=== PATIENT | male | born 1950 | race Caucasian/White ===

== ENCOUNTER → 2017-10-31 11:52 | Outpatient (CLI) | payer MEDICARE, OTHER, SELFPAY ==
--- NOTE | 2017-10-31 11:52 | DT_ITS ---
This patient was seen during an EMR downtime October 29, 2017 - November 05, 2017. This patient may have a combination of paper and electronic documentation or all paper documentation. All documentation is viewable within the e-chart portion of [facility] for each patient visit.
[2017-11-04 15:49] LABS: BUN 15 mg/dL (7-18); BUN/Creat Ratio 17.2 RATIO (10-20); Creatinine, Serum 0.87 mg/dL (0.70-1.30); EST Glomerular Filtration Rate 92 mL/min (>60); Est Glom Filt Rate - Afr Amer 112 mL/min (>60); Glucose 112 mg/dL (74-106)
[2017-11-04 15:50] LABS: AST(SGOT) 28 U/L (15-37); Alanine Aminotransfer ALT/SGPT 48 U/L (16-61); Albumin, Serum 4.2 g/dL (3.2-5.0); Alkaline Phosphatase 80 U/L (45-117); Anion Gap 7 (5-15); Bilirubin, Direct 0.08 mg/dL (0.00-0.30); Chloride 106 mmol/L (98-107); Cholesterol 160 mg/dL (200); Globulin 3.2 g/dL (2.2-4.2); High Density Lipoprotein 44 mg/dL; Potassium 4.3 mmol/L (3.5-5.1); Protein, Total 7.4 g/dL (6.4-8.2); Sodium Level 142 mmol/L (136-145); Triglycerides 251 mg/dL; Very Low Density Lipoprotein 50 mg/dL (5-40)
== END ==
PROVIDERS: Visit Provider Family Medicine
DX: E11.9 Type 2 diabetes mellitus without complications (principal); E78.5 Hyperlipidemia, unspecified
CPT/HCPCS: 36415; 80048; 80061; 80076; 82043; 82570; 83036

== ENCOUNTER → 2017-10-31 13:45 | Outpatient (CLI) | payer OTHER, SELFPAY ==
--- NOTE | 2017-10-31 13:45 | DT_ITS ---
This patient was seen during an EMR downtime October 29, 2017 - November 05, 2017. This patient may have a combination of paper and electronic documentation or all paper documentation. All documentation is viewable within the e-chart portion of [facility] for each patient visit.
== END ==
PROVIDERS: Family Provider Family Medicine; Visit Provider Family Medicine
DX: E11.9 Type 2 diabetes mellitus without complications (principal); E78.5 Hyperlipidemia, unspecified
CPT/HCPCS: 36415; 80048; 80061; 80076; 82043; 82570; 83036

== ENCOUNTER 2018-01-25 13:00 | Outpatient (RCR) | payer MEDICARE, OTHER, SELFPAY ==
--- NOTE | 2017-12-28 10:18 | HP.PTEVAL_ITS ---
Patient's Visit Information VALENTIN JOYCE is a 67 year old M referred to Physical Therapy by Eda Park MD with a diagnosis of RIGHT SHOULDER STRAIN. Date of Evaluation: 12/28/17 Physical Therapist: Sridevi Chan - Visit Plan Frequency: 2x /Week Duration: 6 Weeks Plan: RIGHT SHOULDER US, ROM, STRETCHING AND STRENGTHENING NEEDED TO MEET SET GOALS. POSTURE CORRECTION/STRENGTHENING. - Subjective Subjective: Diagnosis: Work/Leisure: [employer]. [employer]. RETIRED. WORKED ABOUT 80 HOURS A WEEK IN NOVEMBER. SOME MONTHS DOES NOT WORK MUCH AT ALL. Disability: NO. Present symptoms: RIGHT SHOULDER. NO NECK PAIN. NO PAIN, NUMBNESS OR TINGLING DOWN THE ARM. NO LEFT UE SX'S. Present since: MAY 2017. Pain Scale: Worst - 5/10Least - 0/10. Currently: 0/10. Commenced as a result of: PULLING HARD ON A GOAT. Symptoms at onset: SAME. Worse: SLEEPING ON RIGHT SIDE, OVER-HEAD REACHING, REACHING ACROSS BODY. Better: AVOIDING AGGREVATING MOTIONS. Disturbed sleep: YES. Previous history /Previous treatment: UNREMARKABLE. Dizziness: NO. Tinnitis: NO. Nausea: NO. Difficulty Swollowing: NO. Gait: NORMAL. Accidents: NO. Unexplained weight loss: NO. Imaging: NONE. PMH/Recent major surgery: NIDDM - Objective Sitting Posture/Standing Posture: FORWARD HEAD AND ROUNDED SHOULDERS. NO TORTICOLIS. Other Observations: INDEP GAIT AND TRANSFERS WITHOUT DIFFICULTY. Motor deficit: LUE 5/5. RIGHT UE 5/5 EXCEPT RIGHT SHOULDER 4/5. Sensory deficit: NO. ROM deficit: LUE WFL. RIGHT SHOULDER: 148 DEG RIGHT SHOULDER FLEX IN LYING. SUPINE ER 80 DEG, IR 50 DEG. 145 DEG ABD. ERP INTO FLEX, TIO ABD , AND MILDLY INTO IR. GOOD ER ROM IN LYING. Postural strength: FAIR. Palpation: TENDERNESS RIGHT LATERAL SUBACROMIAL REGION. TENDERNESS IS LOCALIZED. - Goals Goal 1:: DECREASE C/O RIGHT SHOULDER PAIN Goal Time Frame: 4-6 Weeks Goal 2:: INCREASE FUNCTIONAL ROM OF RIGHT SHOULDER Goal Time Frame: 4-6 Weeks Goal 3:: INCREASE FUNCTIONAL STRENGTH OF RIGHT SHOULDER Goal Time Frame: 4-6 Weeks Goal 4:: INDEP HEP Goal Time Frame: 4-6 Weeks - Rehabilitation Potential Physical Therapy Diagnosis: DECREASED RIGHT SHOULDER FUNCTIONAL ROM AND STRENGTH. Rehabilitation Potential: Fair - Anticipated Interventions Patient/Client Instruction: Educate patient on: Condition, Plan of Care, Risk Factors, Benefits of Fitness Program For the Purpose of:: To improve self management Therapeutic Exercise to Include: Strength training, Postural training, Flexibilty training, Passive ROM, Active ROM, Scapular Strength/Stabilization For the Purpose of:: To decrease pain, To increase ROM, To improve muscle performance and motor function, To increase tolerance to activity/condition/ position, To improve ability of physical actions for home/community/work/leisure Cryotherapy (ice pack, ice massage): Yes Ultrasound (thermal/non thermal): Yes For the Purpose of:: To decrease pain, To decrease swelling/inflammation, To increase ROM, To improve nutrient delivery to tissue Thank you for the opportunity to evaluate your patient. For Medicare and Medicare HMO plans, please review the plan of care and approve it. It will need to be FAXED BACK to us at [phone] for Medicare purposes. Please let me know if there are questions or concerns regarding this plan of care. Physician Signature: Date:
--- NOTE | 2018-01-25 16:58 | HP.PTDCSUM_ITS ---
HP - PT D/C Summary It has been my pleasure to treat VALENTIN JOYCE under orders from Eda Park MD, for the diagnosis of RIGHT SHOULDER STRAIN for a total of 8 visit(s ). Discharge Date: 01/25/18 Please see the following information for a summary of their discharge status. - Subjective Subjective: PATIENT REPORTS HE IS SOME BETTER. HE STATES THE DOWNS ARE NOT BAD. STILL HAVING DIFFICULTY SLEEPING ON RIGHT SIDE - BETTER THOUGH. REACHING ACROSS BODY IS BETTER TOO. RIGHT SHOULDER PAIN RANGING 0/10 TO 2-3/10 NOW. PATIENT REPORTS HE STARTED THERAPY NOT BELIEVING IN IT AT ALL AND HE IS NOT SURE IF HE IS GETTING BETTER DUE TO TIME OR THE THERAPY. HE REPORTS HE HAS HOME INSTRUCTIONS AND THAT HE IS ABOUT 50% COMPLIANT. REPORTS HE DOES THEM WHEN HE REMEMBERS. PATIENT REPORTS HE IS STILL BUSY THIS TIME A YEAR THIS YEAR. BETWEEN NOW AND BAD WEATHER PATIENT IS PLANNING TO BUILD AN ADDITION TO HIS BARN. HE STATES I KNOW THE SHOULDER IS NOT GOING TO RESPOND WELL TO THAT. - Pain Right Shoulder Pain Intensity (Out of 10): 0 - Overall Improvement % Improvement: 25 - Objective Objective/Function: ALL GOALS MET. PATIENTS ROM HAS IMPROVED, HIS REPORTS OF PAIN HAVE DECREASED, AND HE IS INDEP WITH A HEP. UPON EXAM: Motor deficit: LUE 5/5. RIGHT UE 5/5 EXCEPT RIGHT SHOULDER 5/5 ONLY IN MID RANGE. Sensory deficit: NO. ROM deficit: LUE WFL. RIGHT SHOULDER: 165 DEG RIGHT SHOULDER FLEX IN LYING. SUPINE ER 90 DEG, IR 55 DEG. 160 DEG ABD. ERP INTO FLEX, TIO ABD , AND MILDLY INTO IR. GOOD ER ROM IN LYING. PATIENTS DASH SCORE HAS NOT SIGNIFICANTLY CHANGED. - Goals Goal 1:: DECREASE C/O RIGHT SHOULDER PAIN Goal Progress: Goal Met Goal 2:: INCREASE FUNCTIONAL ROM OF RIGHT SHOULDER Goal Progress: Goal Met Goal 3:: INCREASE FUNCTIONAL STRENGTH OF RIGHT SHOULDER Goal Progress: Goal Met Goal 4:: INDEP HEP Goal Progress: Goal Met - Plan Plan: D/C TO HEP. PATIENT IS AGREEABLE. - D/C Information If there are questions or concerns regarding this patient's physical therapy, please feel free to call me at [phone]. Thank you for the referral of this patient. Sincerely, Sridevi Chan
== END 2018-01-25 19:00 | disposition home or self-care (01) ==
LOC: PT 13:00
PROVIDERS: Family Provider Family Medicine; PCP Family Medicine; Visit Provider Family Medicine
DX: S46.911D Strain of unspecified muscle, fascia and tendon at shoulder and upper arm level, right arm, subsequent encounter (principal)
CPT/HCPCS: 97110; 97161; 97164; 97530

== ENCOUNTER → 2019-05-16 09:41 | Outpatient (CLI) | payer MEDICARE, OTHER, SELFPAY ==
[2019-05-16 12:23] LABS: AST(SGOT) 33 U/L (15-37); Alanine Aminotransfer ALT/SGPT 48 U/L (16-61); Albumin, Serum 4.3 g/dL (3.2-5.0); Alkaline Phosphatase 66 U/L (45-117); Anion Gap 6 (5-15); BUN 16 mg/dL (7-18); BUN/Creat Ratio 15.8 RATIO (10-20); Bilirubin, Direct 0.14 mg/dL (0.00-0.30); Chloride 105 mmol/L (98-107); Cholesterol 142 mg/dL (200); Creatinine, Serum 1.01 mg/dL (0.70-1.30); EST Glomerular Filtration Rate 77 mL/min (>60); Est Glom Filt Rate - Afr Amer 94 mL/min (>60); Globulin 3.2 g/dL (2.2-4.2); Glucose 126 mg/dL (74-106); High Density Lipoprotein 42 mg/dL; PSA,Total - Annual Screen 2.99 ng/mL (0.00-4.00); Potassium 4.4 mmol/L (3.5-5.1); Protein, Total 7.5 g/dL (6.4-8.2); Sodium Level 138 mmol/L (136-145); Triglycerides 125 mg/dL; Very Low Density Lipoprotein 25 mg/dL (5-40)
[2019-05-16 17:56] LABS: Microalbumin,Random Urine 13.9 mg/L (NO RANGE EST.)
== END ==
PROVIDERS: Family Provider Family Medicine; PCP Family Medicine; Referring Provider Family Medicine; Visit Provider Family Medicine
DX: E78.5 Hyperlipidemia, unspecified (principal); E11.9 Type 2 diabetes mellitus without complications; Z12.5 Encounter for screening for malignant neoplasm of prostate
CPT/HCPCS: 36415; 80048; 80061; 80076; 82043; 82570; 84153; G0103

== ENCOUNTER 2020-08-03 14:29 | Outpatient (RCR) | payer MEDICARE, OTHER, SELFPAY ==
[2020-08-03] MEDS: COVID-19 VACC, MRNA(PFIZER)/PF 30 MCG/0.3 ML SYRINGE IM (15:49)
[2020-08-24] MEDS: COVID-19 VACC, MRNA(PFIZER)/PF 30 MCG/0.3 ML SYRINGE IM (15:32)
== END 2020-11-02 23:59 ==
LOC: IMMUN 14:29
PROVIDERS: PCP Family Medicine; Referring Provider Family Medicine; Visit Provider Family Medicine
DX: Z23 Encounter for immunization (principal)
CPT/HCPCS: 0001A; 0002A; 91300

== ENCOUNTER → 2024-10-27 | Outpatient (CLI) | payer MEDICARE, SELFPAY ==
--- NOTE | 2024-10-27 07:00 | MRI_ITS ---
PROCEDURE: LOWER EXT JOINT ONLY (ROUTINE) 10/27/2024 REASON FOR EXAM: WORSENING R KNEE PAIN, INSTABILITY, UNABLE TO BEAR TECHNIQUE: MRI of the right knee without contrast. Multiplanar and multisequence images were obtained without IV contrast administration. COMPARISON: COMPARISON : Right knee series of 10/15/2024. FINDINGS: A moderate right knee joint effusion is noted. A small Alvarado's cyst is seen. No acute osseous signal changes noted. Patella Aishwarya is noted. Cruciate and collateral ligaments appear intact. Visualized extensor tendons appear intact. In the posterior aspect lateral femoral condyle, a button osteophyte is noted. Mild tricompartmental degenerative changes are seen, with [id number] medial and lateral compartment articular cartilage irregular thinning. At least mild articular cartilage thinning is seen at the patellofemoral compartment. An intrasubstance tear of the posterior horn of the medial meniscus is seen. At least an intrasubstance tear of the posterior horn of the lateral meniscus is seen, with the oblique component possibly extending to the tibial surface. MRI/Lower Ext Joint Only (Routine) IMPRESSION: 1. Medial and lateral meniscal tears as described. 2. Patella Aishwarya. 3. Degenerative changes as described, including lateral femoral condyle button osteophyte. 4. Moderate right knee joint effusion, with small Alvarado's cyst also noted. 5. No acute osseous signal change is seen. Reading Location: [id number]
== END | disposition home or self-care (01) ==
PROVIDERS: PCP Family Medicine; Referring Provider Nurse Practitioner Family; Visit Provider Nurse Practitioner Family
DX: S83.91XA Sprain of unspecified site of right knee, initial encounter (principal); M23.91 Unspecified internal derangement of right knee; M25.361 Other instability, right knee
CPT/HCPCS: 73721